=== PATIENT | female | born 1950 | race Asian ===

== ENCOUNTER 2017-06-06 18:20 | Emergency (ER) | payer MEDICARE, OTHER ==
[~2017-06-06] VITALS: Ht 157.5 cm; Wt 59.0 kg
[2017-06-06] MEDS ORDERED: UNOBMED (18:51)
[2017-06-06] MEDS ORDERED: ASPIRIN81 M3 PO (18:51)
--- NOTE | 2017-06-06 19:10 | Emergency Room Report ---
History of Present Illness General Chief Complaint: Multiple Trauma/Fall Source: Patient, Family Member (Samira Nath) Present Illness HPI Patient is a 66-year-old female who presents today status post mechanical fall. Patient was on an escalator with her 3 sisters ahead of her. The first sister fell backwards and each subsequent sister in line then fell on the escalator. She is now complaining of pain to her left lower ribs and her right knee. She states the pain is 5/10 minutes in severity and has not taken medication for it. She denies any head trauma, loss of consciousness. Denies numbness, tingling loss patient. Patient was ambulatory on the scene and has been ambulatory in the ED. (Samira Nath) Allergies: Coded Allergies: No Known Allergies (Unverified , 06/06/17) Patient History Last Menstrual Period: Post Reviewed Nursing Documentation: PMH: Agreed, PSxH: Agreed (Samira Nath) Review of Systems Musculoskeletal: Reports: other - left rib pain, right knee pain All Other Systems: negative except mentioned in HPI (Samira Nath) Physical Exam Vital Signs Date Time Temp Pulse Resp B/P (MAP) Pulse Ox O2 Delivery O2 Flow Rate FiO2 06/06/17 18:46 98.4 59 17 157/84 97 Room Air Sp02 EP Interpretation: reviewed, normal General Appearance: no apparent distress, alert, GCS 15, non-toxic Head: normocephalic, atraumatic Eyes: bilateral eye normal inspection, bilateral eye PERRL ENT: hearing grossly normal, normal pharynx, no angioedema, normal voice Neck: full range of motion, supple/symm/no masses Respiratory: chest non-tender, lungs clear, normal breath sounds, speaking full sentences Cardiovascular #1: regular rate, rhythm, no edema Cardiovascular #2: 2+ carotid (R), 2+ carotid (L), 2+ radial (R), 2+ radial (L) , 2+ dorsalis pedis (R), 2+ dorsalis pedis (L) Gastrointestinal: normal bowel sounds, non tender, soft, non-distended, no guarding, no rebound Rectal: deferred Genitourinary: normal inspection, no CVA tenderness Musculoskeletal: back normal, gait/station normal, normal range of motion, non- tender, other - tenderness to palpation over the right knee, full range of motion of the left knee. Tenderness to palpation of the left inferior ribs. NVI, cap refill brisk, pulses present and equal Neurologic: alert, oriented x3, responsive, motor strength/tone normal, sensory intact, speech normal Psychiatric: judgement/insight normal, memory normal, mood/affect normal, no suicidal/homicidal ideation Reflexes: 3+ bicep (R), 3+ bicep (L), 3+ tricep (R), 3+ tricep (L), 3+ knee (R) , 3+ knee (L) Skin: normal color, no rash, warm/dry, well hydrated, other - ecchymosis to BLE and, abrasions to knees bilaterally Lymphatic: no adenopathy (Samira Nath P.A.) Medical Decision Making PA Attestation Supervising physician is (Samira Nath P.A.) Diagnostic Impression: Primary Impression: Left knee pain Qualified Codes: M25.562 - Pain in left knee Additional Impressions: Contusion of rib on right side Qualified Codes: S20.211A - Contusion of right front wall of thorax, initial encounter Fall Qualified Codes: W19.XXXA - Unspecified fall, initial encounter Multiple injuries due to trauma ER Course no evidence of fracture on x-ray. At reevaluation at 1942 Patient states she is feeling much better with medications. The patient with multiple abrasions and ecchymosis to bilateral lower extremities. Discharged home with Toradol for pain and is instructed to followup with PCP for reevaluation. Patient understands and is agreeable with plan (Samira Nath P.A.) Chest X-Ray Diagnostic Results Chest X-Ray Diagnostic Results : Chest X-Ray Ordered: Yes # of Views/Limited/Complete: 1 View Indication: Other - pain EP Interpretation: Yes Interpretation: no consolidation, no effusion, no pneumothorax, other - no fracture Impression: No acute disease Electronically Signed by: Samira Nath (Samira Nath P.A.) Chest X-Ray Diagnostic Results : Electronically Signed by: Danielle documentation reviewed by me and is accurate, Horace Wall MD. (Horace Wall M.D.) Other X-Ray Diagnostic Results Other X-Ray Diagnostic Results : X-Ray ordered: knee # of Views/Limited Vs Complete: 3 View Indication: Pain EP Interpretation: Yes Interpretation: no dislocation, no soft tissue swelling, no fractures Impression: No acute disease Electronically Signed by: Samira Nath (Samira Naht) Other X-Ray Diagnostic Results : Electronically Signed by: Danielle documentation reviewed by me and is accurate, Horace Wall MD. (Horace Wall M.D.) Reevaluation Time: 19:42 Last Vital Signs Date Time Temp Pulse Resp B/P (MAP) Pulse Ox O2 Delivery O2 Flow Rate FiO2 06/06/17 18:46 98.4 59 17 157/84 97 Room Air Status: improved (Samira Nath.Main) Last Vital Signs Date Time Temp Pulse Resp B/P (MAP) Pulse Ox O2 Delivery O2 Flow Rate FiO2 06/06/17 20:08 98.4 62 17 157/84 97 Room Air (Horace Wall M.D.) Disposition: HOME, SELF-CARE Condition: Stable Scripts Tramadol Hcl (ULTRAM*) 50 Mg Tablet 50 MG ORAL Q4H, #20 TAB 0 Refills Prov: Samira Nath 06/06/17 Patient Instructions: Rib Contusion, Knee Pain, [id number] Samira Nath Jun 06, 2017 19:10 Horace Wall M.D. Jun 07, 2017 03:48
[2017-06-06] MEDS ORDERED: Acetaminophen 500mg (ES) tab ORAL ONE (19:15)
[2017-06-06] MEDS ORDERED: ULTRAM50 MG ORAL (19:47)
[2017-06-06 20:08] VITALS: BP 157/84
--- NOTE | 2017-06-07 09:16 | Diagnostic Imaging Report ---
Indication: Right knee pain Technique: XRAY KNEE THREE VIEWS RIGHT Comparison: None Findings: There is no acute fracture or dislocation. There is no obvious joint effusion. Suprapatellar enthesophyte is seen. Impression: No acute osseous abnormality.
--- NOTE | 2017-06-07 09:29 | Diagnostic Imaging Report ---
Indication: Chest pain Technique: XRAY CHEST 1 V Comparison: None Findings: Cardiomediastinal silhouette is within normal limits. There is no consolidation, pneumothorax or pleural effusion. Degenerative changes of the spine are seen. Impression: No acute cardiopulmonary disease.
== END 2017-06-06 20:10 | disposition home or self-care (01) ==
LOC: EMR 19:12
DX: S80.212A Abrasion, left knee, initial encounter (principal); S80.211A Abrasion, right knee, initial encounter; S20.211A Contusion of right front wall of thorax, initial encounter; W19.XXXA Unspecified fall, initial encounter; Y92.89 Other specified places as the place of occurrence of the external cause
CPT/HCPCS: 71010; 99284